=== PATIENT | male | born 1995 | race Caucasian/White ===

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

== ENCOUNTER 2017-06-08 06:39 | Day surgery (SDC) | payer OTHER ==
[2017-06-08] MEDS ORDERED: fentaNYL 100 MCG/2 ML INJ IVP ONE (06:43)
[2017-06-08] MEDS ORDERED: NS 500 ML IV ONE (06:43)
[2017-06-08] MEDS ORDERED: MIDAZOLAM 2 MG/2 ML VIAL IVP ONE (06:43)
[2017-06-08] MEDS ORDERED: BENZOCAINE UNIT DOSE SPRAY HURRICAINE MM ONE (06:43)
[2017-06-08] MEDS ORDERED: PROPOFOL 200 MG/20 ML VIAL ONE ×2 (07:57)
== END 2017-06-08 12:46 | disposition home or self-care (01) ==
LOC: FCATH 06:39
PROVIDERS: ATTEND Internal Medicine Cardiovascular Disease
PROC: B245ZZ4 Ultrasonography of Left Heart, Transesophageal (ICD-10-PCS; principal; 2017-06-08)
DX: I35.1 Nonrheumatic aortic (valve) insufficiency (principal); Z98.890 Other specified postprocedural states; Z86.79 Personal history of other diseases of the circulatory system
CPT/HCPCS: J2704; J3010

== ENCOUNTER → 2017-06-08 | Outpatient (CLI) | payer OTHER ==
--- NOTE | 2017-06-08 07:50 | PDANEPAE ---
ANE History of Present Illness 22 year old s/p aortic valve repair, aneurysm repair for AMANDA ANE Past Medical History - Cardiovascular History Cardiovascular History Comment: Aortic valve repair - Pulmonary History Hx Sleep Apnea: No ANE Review of Systems Review of systems is: negative Review of Systems: ANE Patient History - Allergies Allergies/Adverse Reactions: No Known Allergies Allergy (Unverified 10/26/16 08:02) - Home Medications Home medications: home medication list seen and reviewed Home Medications: Methimazole 10 mg PO DAILY 10/26/16 [Last Taken 06/07/17 08:00] - NPO status NPO Status: no food or drink >8 hours - Anes Hx Anes Hx: no prior problems - Smoking Hx Smoking Status: Never smoked ANE Physical Exam - Airway Neck exam: FROM Mallampati Score: Class 1 Mouth exam: normal dental/mouth exam - Pulmonary Pulmonary: no respiratory distress - Cardiovascular Cardiovascular: regular rate and rhythym - ASA Status ASA Status: II ANE Anesthesia Plan Anesthesia Plan: MAC
== END ==
LOC: FIMAGING 06:42
PROVIDERS: ATTEND Internal Medicine Cardiovascular Disease
DX: I35.1 Nonrheumatic aortic (valve) insufficiency (principal); Z86.79 Personal history of other diseases of the circulatory system
CPT/HCPCS: Q9967

== ENCOUNTER → 2017-06-23 | Outpatient (CLI) | payer OTHER | LOC: BMCIMAGING 10:02 | PROVIDERS: ATTEND Family Medicine | DX: S93.402A Sprain of unspecified ligament of left ankle, initial encounter (principal) ==

== ENCOUNTER → 2017-07-13 | Outpatient (CLI) | payer OTHER | LOC: FIMAGING 13:23 | PROVIDERS: ATTEND Internal Medicine | DX: R22.41 Localized swelling, mass and lump, right lower limb (principal); Z95.4 Presence of other heart-valve replacement ==

== ENCOUNTER 2018-10-30 20:35 | Emergency (ER) | payer OTHER | END 2018-10-31 00:19 | disposition home or self-care (01) ==